=== PATIENT | female | born 1955 | race Hispanic/Latino ===

== ENCOUNTER 2017-04-21 05:35 | Observation (INO) | payer OTHER ==
[2017-04-21 05:35] VITALS: BMI 18.8
[2017-04-21 05:57] VITALS: RESP 18
--- NOTE | 2017-04-21 10:09 | C.PDOC ---
History Of Present Illness 62-year-old homeless female, PMHx includes schizophrenia (per prior records) presents to the emergency department [facility] with complaints of feeling tired. Patient begging for cigarettes. patient denies any physical complaints at this time. No HI or hallucinations. Chief Complaint (Nursing): Psychiatric Evaluation History Per: Patient, EMS History/Exam Limitations: no limitations Onset/Duration Of Symptoms: Days Current Symptoms Are (Timing): Still Present Past Medical History Reviewed: Historical Data, Nursing Documentation, Vital Signs Vital Signs: Last Vital Signs Temp 98 F 04/21/17 12:28 Pulse 92 H 04/21/17 12:28 Resp 18 04/21/17 12:28 BP 101/56 L 04/21/17 12:28 Pulse Ox 96 04/21/17 12:28 - Medical History PMH: Schizophrenia Denies: Depression, Diabetes, Hepatitis, HIV, HTN, Chronic Kidney Disease, Seizures, Sexually Transmitted Disease - [facility] Procedures GROUP PSYCHOTHERAPY (03/21/17) INDIVID PSYCHOTHERAP NEC (05/25/13) INDIVIDUAL PSYCHOTHERAPY, SUPPORTIVE (03/21/17) MEDICATION MANAGEMENT (03/21/17) OTHER GROUP THERAPY (05/25/13) PSYCHIAT DRUG THERAP NEC (01/21/03) Family History: States: No Known Family Hx - Social History Hx Alcohol Use: No Hx Substance Use: Yes - Immunization History Hx Tetanus Toxoid Vaccination: No Hx Influenza Vaccination: No Hx Pneumococcal Vaccination: No Review Of Systems Except As Marked, All Systems Reviewed And Found Negative. Constitutional: Negative for: Fever Gastrointestinal: Negative for: Nausea, Vomiting Neurological: Negative for: Weakness, Numbness Psych: Negative for: Suicidal ideation Physical Exam - Physical Exam Appears: Non-toxic, No Acute Distress, Unkempt Skin: Warm, Dry, No Rash Nose: Normal Neck: Normal ROM Respiratory: No Accessory Muscle Use Extremity: Normal ROM Neurological/Psych: Oriented x3 ED Course And Treatment O2 Sat by Pulse Oximetry: 97 Disposition - Disposition Disposition: HOME/ ROUTINE Disposition Time: 11:50 Condition: GOOD - Clinical Impression Clinical Impression: Schizophrenia - Scribe Statement The provider has reviewed the documentation as recorded by the Franciscoiblisbeth Ureña All medical record entries made by the Franciscoiblisbeth were at my direction and personally dictated by me. I have reviewed the chart and agree that the record accurately reflects my personal performance of the history, physical exam, medical decision making, and the department course for this patient. I have also personally directed, reviewed, and agree with the discharge instructions and disposition.
[2017-04-21 12:30] VITALS: BP 101/56; PULSE 92; TEMP 98
[2017-04-21 18:17] VITALS: O2SAT 97
== END 2017-04-21 12:01 | disposition home or self-care (01) ==
LOC: C.ER 05:35 → C.9OBSV 07:00
PROVIDERS: ADMIT Emergency Medicine; ATTEND Emergency Medicine
DX: F20.9 Schizophrenia, unspecified (principal); Z59.0 Homelessness

== ENCOUNTER 2017-05-10 13:49 | Observation (INO) | payer OTHER ==
[2017-05-10 13:49] VITALS: BMI 18.8
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
[2017-05-10 18:17] LABS: BASO % 0.3 % (0.0-2.0); EOS # 0.1 K/uL (0.0-0.7); EOS % 1.7 % (0.0-4.0); HEMATOCRIT 36.3 % (34.0-47.0); LYMPH # 2.2 K/uL (1.0-4.3); LYMPH % 32.3 % (20.0-40.0); MEAN CELL VOLUME 91.5 fL (81.0-99.0); MEAN CORPUSCULAR HEMOGLOBIN 30.2 pg (27.0-31.0); MEAN PLATELET VOLUME 9.7 fL (7.2-11.7); MONO # 0.6 K/uL (0.0-0.8); MONO % 9.1 % (0.0-10.0); RED CELL DISTRIBUTION WIDTH 14.2 % (11.5-14.5); WHITE BLOOD COUNT 6.7 K/uL (4.8-10.8)
[2017-05-10 18:25] LABS: CHLORIDE 104 mmol/L (98-107); POTASSIUM 3.3 mmol/L (3.6-5.2); SODIUM 138 mmol/L (132-148)
[2017-05-10 18:27] LABS: ALB/GLOB RATIO 1.4 (1.0-2.1); ALKALINE PHOSPHATASE 48 U/L (38-126); AST/SGOT 21 U/L (14-36); BILIRUBIN,TOTAL 0.9 mg/dL (0.2-1.3); BLOOD UREA NITROGEN 13 mg/dL (7-17); CARBON DIOXIDE 22 mmol/L (22-30); GFR AFRICAN-AMERICAN > 60
[2017-05-10 18:28] LABS: ALCOHOL SERUM < 10 mg/dl (0-10); ALT/SGPT 22 U/L (9-52); GLUCOSE,RANDOM 75 mg/dL (65-105)
[2017-05-10 19:23] LABS: RBC URINE 12 /hpf (0-3); TRANSITIONAL EPITHIAL 1 /hpf (0-3); URINE BACTERIA FEW (<OCC); URINE BILIRUBIN NEGATIVE (NEGATIVE); URINE COLOR Amber (YELLOW); URINE GLUCOSE (UA) NORMAL (Normal); URINE KETONE 2+ mg/dL (NEGATIVE); URINE LEUKOCYTE ESTERASE 3+ Leu/uL (Negative); URINE PROTEIN NEGATIVE (NEGATIVE); URINE UROBILINOGEN NORMAL mg/dL (0.2-1.0); WBC URINE 38 /hpf (0-5)
[2017-05-10 19:39] LABS: URINE BLOOD TRACE (NEGATIVE)
[2017-05-10 22:40] VITALS: RESP 20
[2017-05-10] MEDS ORDERED: Potassium Chloride 20 mEq ER Tab PO STA (23:17)
[2017-05-10] MEDS ORDERED: Potassium Chloride 20 mEq ER Tab PO ONE (23:21)
[2017-05-11 06:07] VITALS: BP 121/70; PULSE 89; TEMP 97.1; O2SAT 98
== END 2017-05-11 05:04 | disposition home or self-care (01) ==
LOC: C.ER 13:49 → C.9OBSV 14:36
PROVIDERS: ADMIT Student in an Organized Health Care Education/Training Program; ATTEND Student in an Organized Health Care Education/Training Program
DX: F20.9 Schizophrenia, unspecified (principal)
CPT/HCPCS: 80053; 81001; 85025; 99285; G0378; G0480

== ENCOUNTER 2017-05-17 04:47 | Emergency (ER) | payer MEDICAID, OTHER ==
[2017-05-17 04:47] VITALS: BMI 18.8
[2017-05-17 04:52] VITALS: TEMP 98.1
--- NOTE | 2017-05-17 06:16 | C.PDOC ---
History Of Present Illness A 62 y/o F with a Hx of schizophrenia, wants a place to stay. Denies any physical complaints at this time. Time Seen by Provider: 05/17/17 06:13 Chief Complaint (Nursing): Medical Clearance History Per: Patient History/Exam Limitations: no limitations Onset/Duration Of Symptoms: Hrs Current Symptoms Are (Timing): Gone Severity: None Recent travel outside of the [place]: No Additional History Per: Patient Past Medical History Reviewed: Historical Data, Nursing Documentation, Vital Signs Vital Signs: Last Vital Signs Temp 98.1 F 05/17/17 04:50 Pulse 80 05/17/17 06:35 Resp 16 05/17/17 06:35 BP 120/74 05/17/17 06:35 Pulse Ox 97 05/17/17 06:35 - Medical History PMH: Schizophrenia Denies: Depression, Diabetes, Hepatitis, HIV, HTN, Chronic Kidney Disease, Seizures, Sexually Transmitted Disease - [facility] Procedures GROUP PSYCHOTHERAPY (04/28/17) INDIVID PSYCHOTHERAP NEC (05/25/13) INDIVIDUAL PSYCHOTHERAPY, SUPPORTIVE (03/21/17) MEDICATION MANAGEMENT (03/21/17) OTHER GROUP THERAPY (05/25/13) PSYCHIAT DRUG THERAP NEC (01/21/03) Family History: States: Unknown Family Hx - Social History Hx Alcohol Use: No Hx Substance Use: Yes - Immunization History Hx Tetanus Toxoid Vaccination: No Hx Influenza Vaccination: No Hx Pneumococcal Vaccination: No Review Of Systems Except As Marked, All Systems Reviewed And Found Negative. Constitutional: Negative for: Fever, Chills, Sweats Cardiovascular: Negative for: Chest Pain Respiratory: Negative for: Shortness of Breath Gastrointestinal: Negative for: Nausea, Vomiting, Abdominal Pain, Diarrhea Psych: Negative for: Suicidal ideation, Other (Homicidal ideation) Physical Exam - Physical Exam Appears: Non-toxic, No Acute Distress, Unkempt, Other (Desheveled, foul smelling , bizzare) Skin: Warm, Dry Head: Atraumatic, Normacephalic Eye(s): bilateral: Normal Inspection Oral Mucosa: Moist Cardiovascular: Rhythm Regular Respiratory: Normal Breath Sounds, No Rales, No Rhonchi, No Wheezing Gastrointestinal/Abdominal: Soft, No Tenderness Neurological/Psych: Oriented x3, Normal Speech, Normal Cognition ED Course And Treatment O2 Sat by Pulse Oximetry: 96 (RA) Pulse Ox Interpretation: Normal Medical Decision Making Medical Decision Making: Impression: A 62 y/o F with a Hx of schizophrenia, wants a place to stay. schizophrenia, malingering. dirty feet, no infections, Disposition Doctor Will See Patient In The: Office Counseled Patient/Family Regarding: Studies Performed, Diagnosis - Disposition Referrals: Non [facility] Provider, [Primary Care Provider] - Disposition: HOME/ ROUTINE Disposition Time: 06:15 Condition: GOOD Additional Instructions: seek intermediate placement for nightly place to sleep Instructions: Schizophrenia (ED) - Clinical Impression Clinical Impression: Schizophrenia, Malingering - Scribe Statement The provider has reviewed the documentation as recorded by the Scribe Bladimir kothari All medical record entries made by the Scribe were at my direction and personally dictated by me. I have reviewed the chart and agree that the record accurately reflects my personal performance of the history, physical exam, medical decision making, and the department course for this patient. I have also personally directed, reviewed, and agree with the discharge instructions and disposition.
[2017-05-17 06:35] VITALS: BP 120/74; PULSE 80; RESP 16
[2017-05-18 23:51] VITALS: O2SAT 96
== END 2017-05-17 06:35 | disposition home or self-care (01) ==
LOC: SUPCPDRO 04:47 → C.ER 04:47
DX: F20.9 Schizophrenia, unspecified (principal); Z76.5 Malingerer [conscious simulation]

== ENCOUNTER 2017-06-06 18:39 | Observation (INO) | payer OTHER ==
[2017-06-06 18:50] VITALS: O2SAT 97
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
[2017-06-06 19:43] LABS: BASO # 0.1 K/uL (0.0-0.2); BASO % 1.4 % (0.0-2.0); EOS # 0.2 K/uL (0.0-0.7); EOS % 2.3 % (0.0-4.0); HEMATOCRIT 35.8 % (34.0-47.0); LYMPH # 1.9 K/uL (1.0-4.3); MEAN CELL VOLUME 90.1 fL (81.0-99.0); MEAN CORPUSCULAR HEMOGLOBIN 30.4 pg (27.0-31.0); MEAN CORPUSCULAR HGB CONC 33.8 g/dL (33.0-37.0); MEAN PLATELET VOLUME 10.4 fL (7.2-11.7); MONO # 0.9 K/uL (0.0-0.8); RED CELL DISTRIBUTION WIDTH 14.1 % (11.5-14.5); WHITE BLOOD COUNT 6.9 K/uL (4.8-10.8)
[2017-06-06 19:54] LABS: CHLORIDE 97 mmol/L (98-107)
[2017-06-06 19:55] LABS: POTASSIUM 3.1 mmol/L (3.6-5.2); SODIUM 137 mmol/L (132-148)
[2017-06-06 19:57] LABS: ALB/GLOB RATIO 1.4 (1.0-2.1); ALKALINE PHOSPHATASE 57 U/L (38-126); ALT/SGPT 22 U/L (9-52); AST/SGOT 18 U/L (14-36); BILIRUBIN,TOTAL 0.8 mg/dL (0.2-1.3); BLOOD UREA NITROGEN 21 mg/dL (7-17); CARBON DIOXIDE 24 mmol/L (22-30); GFR AFRICAN-AMERICAN > 60; GLUCOSE,RANDOM 89 mg/dL (65-105); TOTAL PROTEIN 6.4 g/dL (6.3-8.3)
[2017-06-06 19:58] LABS: ALCOHOL SERUM < 10 mg/dl (0-10); CALCIUM 8.5 mg/dl (8.6-10.4)
[2017-06-06] MEDS ORDERED: Potassium Chloride 20 mEq ER Tab PO STA (20:09)
[2017-06-06] MEDS ORDERED: Potassium Chloride 20 mEq ER Tab PO ONE ×2 (20:18→20:19)
[2017-06-06 21:16] LABS: RBC URINE 27 /hpf (0-3); RENAL EPITHELIAL 2 /hpf (0-3); URINE BACTERIA RARE (<OCC); URINE BILIRUBIN NEGATIVE (NEGATIVE); URINE BLOOD 1+ (NEGATIVE); URINE COLOR Yellow (YELLOW); URINE GLUCOSE (UA) NORMAL (Normal); URINE KETONE 1+ mg/dL (NEGATIVE); URINE LEUKOCYTE ESTERASE 3+ Leu/uL (Negative); URINE PROTEIN 1+ mg/dL (NEGATIVE); URINE UROBILINOGEN NORMAL mg/dL (0.2-1.0); WBC URINE 148 /hpf (0-5)
[2017-06-07 02:16] VITALS: BP 95/55; PULSE 62; RESP 16; TEMP 98
--- NOTE | 2017-06-07 08:43 | RAD ---
PROCEDURE: CHEST RADIOGRAPH, 1 VIEW HISTORY: Detox/Psy COMPARISON: None available. FINDINGS: LUNGS: The lungs are clear. PLEURA: No pneumothorax or pleural fluid seen. CARDIOVASCULAR: Normal. OSSEOUS STRUCTURES: No significant abnormalities. VISUALIZED UPPER ABDOMEN: Normal. OTHER FINDINGS: None. IMPRESSION: No active pulmonary disease.
--- NOTE | 2017-06-11 10:12 | CARD ---
APPROVED REPORT EKG Measurement Heart [id number] [place] [id number] <Conclusion> Undetermined rhythm Otherwise normal ECG
== END 2017-06-07 05:48 | disposition home or self-care (01) ==
LOC: C.ER 18:39 → EDBD 18:39 → MERGE 06-07 01:12 → C.9OBSV 06-07 01:12
PROVIDERS: ADMIT Student in an Organized Health Care Education/Training Program; ATTEND Student in an Organized Health Care Education/Training Program
DX: F20.9 Schizophrenia, unspecified (principal)
CPT/HCPCS: 71010; 80053; 80320; 80324; 80329; 80345; 80346; 80349; 80353; 80358; 80361; 81001; 83992; 84703; 85025; 93005; 99285; G0378

== ENCOUNTER 2017-06-10 23:49 | Emergency (ER) | payer OTHER ==
[2017-06-10 23:50] VITALS: BMI 18.8
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
[2017-06-11 01:40] LABS: BASO % 0.2 % (0.0-2.0); EOS # 0.2 K/uL (0.0-0.7); EOS % 3.9 % (0.0-4.0); HEMATOCRIT 33.4 % (34.0-47.0); LYMPH % 36.2 % (20.0-40.0); MEAN CELL VOLUME 90.6 fL (81.0-99.0); MEAN CORPUSCULAR HEMOGLOBIN 30.3 pg (27.0-31.0); MEAN CORPUSCULAR HGB CONC 33.4 g/dL (33.0-37.0); MEAN PLATELET VOLUME 10.4 fL (7.2-11.7); MONO # 0.7 K/uL (0.0-0.8); MONO % 12.5 % (0.0-10.0); NRBC % 0.1 % (0.0-2.0); RED CELL DISTRIBUTION WIDTH 14.7 % (11.5-14.5); WHITE BLOOD COUNT 5.7 K/uL (4.8-10.8)
[2017-06-11 01:45] LABS: CHLORIDE 100 mmol/L (98-107); SODIUM 137 mmol/L (132-148)
[2017-06-11 01:47] LABS: AST/SGOT 14 U/L (14-36); BILIRUBIN,TOTAL 0.7 mg/dL (0.2-1.3); CARBON DIOXIDE 22 mmol/L (22-30); GFR AFRICAN-AMERICAN > 60
[2017-06-11 01:48] LABS: ALB/GLOB RATIO 1.4 (1.0-2.1); ALCOHOL SERUM < 10 mg/dl (0-10); ALKALINE PHOSPHATASE 54 U/L (38-126); ALT/SGPT 25 U/L (9-52); BLOOD UREA NITROGEN 12 mg/dL (7-17); CALCIUM 8.3 mg/dl (8.6-10.4); GLUCOSE,RANDOM 79 mg/dL (65-105); TOTAL PROTEIN 5.8 g/dL (6.3-8.3)
[2017-06-11 01:50] LABS: RBC URINE 63 /hpf (0-3); URINE BACTERIA RARE (<OCC); URINE BILIRUBIN NEGATIVE (NEGATIVE); URINE BLOOD 2+ (NEGATIVE); URINE CALCIUM OXALATE CRYSTALS RARE /hpf (<OCC); URINE COLOR Yellow (YELLOW); URINE GLUCOSE (UA) NORMAL (Normal); URINE KETONE TRACE mg/dL (NEGATIVE); URINE LEUKOCYTE ESTERASE 3+ Leu/uL (Negative); URINE PROTEIN 1+ mg/dL (NEGATIVE); URINE UROBILINOGEN NORMAL mg/dL (0.2-1.0); WBC URINE 42 /hpf (0-5)
[2017-06-11 01:54] LABS: POTASSIUM 2.5 mmol/L (3.6-5.2)
[2017-06-11] MEDS ORDERED: Potassium Chloride 20 mEq ER Tab PO ONE (01:57)
[2017-06-11] MEDS ORDERED: Potassium Chloride 10 mEq ER Tab PO STA (01:58)
[2017-06-11 04:12] VITALS: PULSE 61; RESP 16
[2017-06-11 05:59] VITALS: BP 99/65; TEMP 97.7; O2SAT 99
--- NOTE | 2017-06-11 08:02 | RAD ---
PROCEDURE: CHEST RADIOGRAPH, 1 VIEW HISTORY: Detox/Psy COMPARISON: None available. FINDINGS: LUNGS: Mild venous congestion. Right hilar prominence. PLEURA: No pneumothorax or pleural fluid seen. CARDIOVASCULAR: Calcification at the aortic knob. OSSEOUS STRUCTURES: Calcific tendinopathy of the right proximal humerus. VISUALIZED UPPER ABDOMEN: Normal. OTHER FINDINGS: None. IMPRESSION: Mild venous congestion.
--- NOTE | 2017-06-14 06:53 | CARD ---
APPROVED REPORT EKG Measurement Heart [id number] <Conclusion> Normal sinus rhythm, 1st degree AV block with prolonged QTc interval. Borderline ECG
== END 2017-06-11 06:16 | disposition home or self-care (01) ==
LOC: C.ER 23:49
DX: F20.9 Schizophrenia, unspecified (principal); E87.6 Hypokalemia

== ENCOUNTER 2017-06-26 23:13 | Observation (INO) | payer OTHER ==
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
[2017-06-26 23:27] VITALS: BMI 18.6
[2017-06-27 00:33] LABS: EOS # 0.3 K/uL (0.0-0.7); EOS % 5.6 % (0.0-4.0); HEMATOCRIT 34.1 % (34.0-47.0); LYMPH # 1.9 K/uL (1.0-4.3); LYMPH % 33.2 % (20.0-40.0); MONO # 0.4 K/uL (0.0-0.8); WHITE BLOOD COUNT 5.7 K/uL (4.8-10.8)
[2017-06-27 00:38] LABS: BASO % 0.3 % (0.0-2.0); MEAN CORPUSCULAR HEMOGLOBIN 30.1 pg (27.0-31.0); MEAN PLATELET VOLUME 9.9 fL (7.2-11.7); MONO % 7.3 % (0.0-10.0); NRBC % 0.1 % (0.0-2.0); RED CELL DISTRIBUTION WIDTH 14.5 % (11.5-14.5)
[2017-06-27 00:47] LABS: CHLORIDE 103 mmol/L (98-107); SODIUM 138 mmol/L (132-148)
[2017-06-27 00:48] LABS: POTASSIUM 2.9 mmol/L (3.6-5.2)
[2017-06-27 00:50] LABS: ALB/GLOB RATIO 1.3 (1.0-2.1); ALKALINE PHOSPHATASE 48 U/L (38-126); AST/SGOT 26 U/L (14-36); BILIRUBIN,TOTAL 0.6 mg/dL (0.2-1.3); BLOOD UREA NITROGEN 9 mg/dL (7-17); CARBON DIOXIDE 26 mmol/L (22-30); GFR AFRICAN-AMERICAN > 60; GLUCOSE,RANDOM 94 mg/dL (65-105); TOTAL PROTEIN 5.1 g/dL (6.3-8.3)
[2017-06-27 00:51] LABS: ALCOHOL SERUM < 10 mg/dl (0-10); ALT/SGPT 35 U/L (9-52)
[2017-06-27 02:01] VITALS: RESP 16
[2017-06-27 05:54] VITALS: O2SAT 98
[2017-06-27 06:48] LABS: RBC URINE 2 /hpf (0-3); URINE BILIRUBIN NEGATIVE (NEGATIVE); URINE BLOOD NEGATIVE (NEGATIVE); URINE COLOR Yellow (YELLOW); URINE GLUCOSE (UA) NORMAL (Normal); URINE KETONE 1+ mg/dL (NEGATIVE); URINE LEUKOCYTE ESTERASE TRACE Leu/uL (Negative); URINE PROTEIN NEGATIVE (NEGATIVE); WBC URINE 14 /hpf (0-5)
--- NOTE | 2017-06-27 12:46 | RAD ---
PROCEDURE: CHEST RADIOGRAPH, 1 VIEW HISTORY: SOB COMPARISON: 06/11/2017. FINDINGS: LUNGS: Clear. PLEURA: No pneumothorax or pleural fluid seen. CARDIOVASCULAR: Normal. OSSEOUS STRUCTURES: No significant abnormalities. VISUALIZED UPPER ABDOMEN: Normal. OTHER FINDINGS: None. IMPRESSION: No active disease. No acute/significant interval changes.
[2017-06-27] MEDS ORDERED: Divalproex 250 mg DR Tab PO ONE (13:03)
[2017-06-27 14:07] VITALS: BP 106/65; PULSE 82; TEMP 97.7
--- NOTE | 2017-06-28 20:52 | CARD ---
APPROVED REPORT EKG Measurement Heart [id number] [place] 182P64 [id number] <Conclusion> Normal sinus rhythm Normal ECG
== END 2017-06-27 14:54 | disposition home or self-care (01) ==
LOC: C.ER 23:13 → C.9OBSV 06-27 00:10
PROVIDERS: ADMIT Emergency Medicine; ATTEND Emergency Medicine
DX: F20.9 Schizophrenia, unspecified (principal); I10 Essential (primary) hypertension
CPT/HCPCS: 36415; 71010; 80053; 80164; 80320; 80324; 80345; 80346; 80349; 80353; 80358; 80361; 81001; 83992; 85025; 93005; 96372; 99285; G0378; J1630; J2060

== ENCOUNTER 2017-07-13 14:55 | Emergency (ER) | payer OTHER ==
[2017-07-13 14:56] VITALS: BMI 18.6
[2017-07-13 15:21] VITALS: TEMP 98.1
[2017-07-13 16:03] LABS: BASO # 0.2 K/uL (0.0-0.2); EOS # 0.2 K/uL (0.0-0.7); EOS % 3.2 % (0.0-4.0); HEMATOCRIT 37.1 % (34.0-47.0); LYMPH # 1.7 K/uL (1.0-4.3); LYMPH % 30.1 % (20.0-40.0); MEAN CELL VOLUME 91.7 fL (81.0-99.0); MEAN CORPUSCULAR HEMOGLOBIN 29.9 pg (27.0-31.0); MEAN CORPUSCULAR HGB CONC 32.6 g/dL (33.0-37.0); MEAN PLATELET VOLUME 9.4 fL (7.2-11.7); MONO # 0.4 K/uL (0.0-0.8); MONO % 7.9 % (0.0-10.0); NRBC % 0.1 % (0.0-2.0); RED CELL DISTRIBUTION WIDTH 15.1 % (11.5-14.5); WHITE BLOOD COUNT 5.6 K/uL (4.8-10.8)
[2017-07-13 16:15] LABS: RBC URINE 13 /hpf (0-3); TRANSITIONAL EPITHIAL < 1 /hpf (0-3); URINE BACTERIA RARE (<OCC); URINE BILIRUBIN NEGATIVE (NEGATIVE); URINE BLOOD 1+ (NEGATIVE); URINE COLOR Yellow (YELLOW); URINE GLUCOSE (UA) NORMAL (Normal); URINE KETONE TRACE mg/dL (NEGATIVE); URINE PROTEIN NEGATIVE (NEGATIVE); WBC URINE 3 /hpf (0-5)
[2017-07-13 16:15] LABS: CHLORIDE 106 mmol/L (98-107); POTASSIUM 3.2 mmol/L (3.6-5.2); SODIUM 142 mmol/L (132-148)
[2017-07-13 16:17] LABS: ALB/GLOB RATIO 1.2 (1.0-2.1); ALKALINE PHOSPHATASE 59 U/L (38-126); AST/SGOT 22 U/L (14-36); BILIRUBIN,TOTAL 0.6 mg/dL (0.2-1.3); BLOOD UREA NITROGEN 10 mg/dL (7-17); CARBON DIOXIDE 25 mmol/L (22-30); GFR AFRICAN-AMERICAN > 60; TOTAL PROTEIN 5.8 g/dL (6.3-8.3)
[2017-07-13 16:17] LABS: URINE LEUKOCYTE ESTERASE NEGATIVE Leu/uL (Negative)
[2017-07-13 16:18] LABS: ALCOHOL SERUM < 10 mg/dl (0-10); ALT/SGPT 28 U/L (9-52); CALCIUM 9.3 mg/dl (8.6-10.4); GLUCOSE,RANDOM 98 mg/dL (65-105)
[2017-07-13 17:38] LABS: VALPROIC ACID < 10.0 ug/mL (50.0-100.0)
--- NOTE | 2017-07-13 17:55 | C.PDOC ---
Time Seen by Provider: 07/13/17 15:33 Chief Complaint (Nursing): Psychiatric Evaluation History Per: Patient, EMS History/Exam Limitations: other (uncooperative) Onset/Duration Of Symptoms: Days (chronic) Current Symptoms Are (Timing): Still Present Suicide/Self Injury Attempted (Context): None Modifying Factor(s): None Severity: Moderate Associated Symptoms: Agitation Additional History Per: Prior Records Past Medical History Reviewed: Historical Data, Nursing Documentation, Vital Signs Vital Signs: Last Vital Signs Temp 98.1 F 07/13/17 15:21 Pulse 77 07/13/17 15:21 Resp 18 07/13/17 15:21 BP 130/68 07/13/17 15:21 Pulse Ox 99 07/13/17 15:21 - Medical History PMH: HTN, Schizophrenia - [facility] Procedures GROUP PSYCHOTHERAPY (04/28/17) INDIVID PSYCHOTHERAP NEC (05/25/13) INDIVIDUAL PSYCHOTHERAPY, SUPPORTIVE (03/21/17) MEDICATION MANAGEMENT (03/21/17) OTHER GROUP THERAPY (05/25/13) PSYCHIAT DRUG THERAP NEC (01/21/03) Family History: States: Unknown Family Hx - Social History Hx Alcohol Use: No Hx Substance Use: Yes - Immunization History Hx Tetanus Toxoid Vaccination: No Hx Influenza Vaccination: No Hx Pneumococcal Vaccination: No Review Of Systems Review Of Systems: ROS cannot be obtained secondary to pt's inabilty to answer questions. (refusing to answer) Physical Exam - Physical Exam Appears: Non-toxic, No Acute Distress, Agitated, Other (Uncooperative) Skin: Normal Color, Warm, Dry Head: Atraumatic Eye(s): bilateral: PERRL, EOMI Neck: Normal ROM, No Midline Cervical Tenderness, No Step Off Deformity, Supple Chest: Symmetrical, No Deformity Cardiovascular: Rhythm Regular Respiratory: Normal Breath Sounds, No Accessory Muscle Use Gastrointestinal/Abdominal: Soft, No Tenderness Extremity: Normal ROM, No Deformity Neurological/Psych: Inappropriate Response To Command (Uncooperative. Refusing to answer questions), Other (Moving all extremities) ED Course And Treatment - Laboratory Results Result Diagrams: 07/13/17 15:58 07/13/17 15:58 Lab Interpretation: No Acute Changes O2 Sat by Pulse Oximetry: 99 Pulse Ox Interpretation: Normal Progress Note: Pt was evaluated by the mechanical maintenance worker who d/w the psychiatrist Dr. Snow. They psychiatrically cleared pt for discharge and arranged for outpt f/up. Reassessment Condition: Improved Disposition Counseled Patient/Family Regarding: Studies Performed, Diagnosis, Need For Followup - Disposition Referrals: [facility] at [facility] [Outside] Disposition: HOME/ ROUTINE Disposition Time: 17:57 Condition: STABLE Additional Instructions: Follow up in the clinic and with outpatient mental health as instructed. Return to the ER if you develop suicidal or homicidal thoughts, worsening of symptoms or if you have any other concerns. Instructions: Schizophrenia (ED) Forms: [email or web address] (Upper Sorbian) - Clinical Impression Clinical Impression: Chronic schizophrenic
[2017-07-13 17:57] VITALS: BP 114/70; PULSE 78; RESP 20
[2017-07-13 17:59] VITALS: O2SAT 99
== END 2017-07-13 19:12 | disposition home or self-care (01) ==
LOC: C.ER 14:55
DX: F20.5 Residual schizophrenia (principal)

== ENCOUNTER 2017-07-19 14:47 | Emergency (ER) | payer OTHER ==
[2017-07-19 14:48] VITALS: BMI 18.6
[2017-07-19 14:59] VITALS: TEMP 98.7
--- NOTE | 2017-07-19 15:39 | C.PDOC ---
History Of Present Illness A 62 year old female, whose past medical history includes schizophrenia and hypertension, presents to the emergency department brought in by EMS for abnormal public behavior in the park. The patient has many prior visits for the the same complaints. The patient is brought in for psychiatric evaluation and is given similar lab work up for no emergent psychiatric issues. The patient is completely asymptomatic at this time. Time Seen by Provider: 07/19/17 14:54 Chief Complaint (Nursing): Psychiatric Evaluation History Per: Patient History/Exam Limitations: no limitations Onset/Duration Of Symptoms: Mins (x prior to arrival ) Past Medical History Vital Signs: Last Vital Signs Temp 98.7 F 07/19/17 14:54 Pulse 74 07/19/17 16:05 Resp 16 07/19/17 16:05 BP 95/43 L 07/19/17 16:05 Pulse Ox 100 07/19/17 16:05 - Medical History PMH: HTN, Schizophrenia Denies: Diabetes, Hepatitis, HIV, Chronic Kidney Disease, Seizures, Sexually Transmitted Disease - [facility] Procedures GROUP PSYCHOTHERAPY (04/28/17) INDIVID PSYCHOTHERAP NEC (05/25/13) INDIVIDUAL PSYCHOTHERAPY, SUPPORTIVE (03/21/17) MEDICATION MANAGEMENT (03/21/17) OTHER GROUP THERAPY (05/25/13) PSYCHIAT DRUG THERAP NEC (01/21/03) Family History: States: Unknown Family Hx - Social History Hx Alcohol Use: No (unknown) Hx Substance Use: No (uknown) - Immunization History Hx Tetanus Toxoid Vaccination: No Hx Influenza Vaccination: No Hx Pneumococcal Vaccination: No Review Of Systems Except As Marked, All Systems Reviewed And Found Negative. Constitutional: Negative for: Fever Cardiovascular: Negative for: Chest Pain Respiratory: Negative for: Cough, Shortness of Breath Gastrointestinal: Negative for: Nausea, Vomiting, Abdominal Pain, Diarrhea Psych: Negative for: Suicidal ideation Physical Exam - Physical Exam Appears: Non-toxic, No Acute Distress, Other (bizarre behavior; disheveled; foul smelling, covered in stool; argumentative ) Skin: Normal Color, Warm, Dry Eye(s): bilateral: Normal Inspection, PERRL, EOMI Nose: Normal Throat: Normal Neck: Normal Cardiovascular: Rhythm Regular Respiratory: Normal Breath Sounds Gastrointestinal/Abdominal: Normal Exam Back: Normal Inspection Extremity: Normal ROM Neurological/Psych: Other (A&O) ED Course And Treatment O2 Sat by Pulse Oximetry: 99 Medical Decision Making Medical Decision Making: baseline schizophrenia, malingering no acute issues many prior evals w Crisis, uncooperative, ok for opt f/u no SI/HI Treatment Plan: -- Ativan Progress Notes: Disposition Doctor Will See Patient In The: Office Counseled Patient/Family Regarding: Studies Performed, Diagnosis - Disposition Referrals: [facility] [Outside] [facility] [place] [Outside] [facility] [Outside] [facility] [Outside] Disposition: HOME/ ROUTINE Disposition Time: 15:39 Condition: GOOD Additional Instructions: follow-up with our outpatient psych services Seek nightly Nursing Home placement as directed. Instructions: Schizophrenia (ED) Forms: [employer] (Serbian) - Clinical Impression Clinical Impression: Schizophrenia - Scribe Statement The provider has reviewed the documentation as recorded by the Scribe Roz Solorzano All medical record entries made by the Scribe were at my direction and personally dictated by me. I have reviewed the chart and agree that the record accurately reflects my personal performance of the history, physical exam, medical decision making, and the department course for this patient. I have also personally directed, reviewed, and agree with the discharge instructions and disposition.
[2017-07-19 16:06] VITALS: BP 95/43; PULSE 74; RESP 16
[2017-07-19 17:20] VITALS: O2SAT 99
== END 2017-07-19 16:07 | disposition home or self-care (01) ==
LOC: C.ER 14:47
DX: F20.9 Schizophrenia, unspecified (principal)
CPT/HCPCS: 96372; 99283; J2060

== ENCOUNTER 2017-07-23 23:02 | Emergency (ER) | payer OTHER ==
[2017-07-23 23:02] VITALS: BMI 18.6
--- NOTE | 2017-07-23 23:22 | C.PDOC ---
History Of Present Illness 62 year old female who is a well known homeless schizophrenic presents to the ER no new complaints. Patient has had many prior evaluations, usually for malingering and looking for a place to stay. When asked why she is here she responded, "leave me alone, I'm watching TV. No, I don't want anything, no I don 't have any complaints" Time Seen by Provider: 07/23/17 23:20 History Per: Patient History/Exam Limitations: no limitations Onset/Duration Of Symptoms: Hrs Current Symptoms Are (Timing): Still Present Suicide/Self Injury Attempted (Context): None Associated Symptoms: denies: Depression, Suicidal Thoughts, Suicidal Plan Recent travel outside of the [place]: No Past Medical History Reviewed: Historical Data, Nursing Documentation, Vital Signs Vital Signs: Last Vital Signs Temp 98.0 F 07/23/17 23:38 Pulse 88 07/23/17 23:38 Resp 20 07/23/17 23:38 BP 110/72 07/23/17 23:38 Pulse Ox 95 07/23/17 23:38 - Medical History PMH: HTN, Schizophrenia Surgical History: No Surg Hx - [facility] Procedures GROUP PSYCHOTHERAPY (04/28/17) INDIVID PSYCHOTHERAP NEC (05/25/13) INDIVIDUAL PSYCHOTHERAPY, SUPPORTIVE (03/21/17) MEDICATION MANAGEMENT (03/21/17) OTHER GROUP THERAPY (05/25/13) PSYCHIAT DRUG THERAP NEC (01/21/03) Family History: States: Unknown Family Hx - Social History Hx Alcohol Use: No (unknown) Hx Substance Use: No (uknown) - Immunization History Hx Tetanus Toxoid Vaccination: No Hx Influenza Vaccination: No Hx Pneumococcal Vaccination: No Review Of Systems Constitutional: Negative for: Fever, Chills Cardiovascular: Negative for: Chest Pain, Palpitations Gastrointestinal: Negative for: Nausea, Vomiting Neurological: Negative for: Weakness, Numbness Physical Exam - Physical Exam Appears: Non-toxic, No Acute Distress, Other (Disheveled, foul smelling, argumentative, no acute injuries) Skin: Normal Color, Warm, Dry Head: Atraumatic, Normacephalic Respiratory: No Accessory Muscle Use Extremity: Normal ROM (x4) Neurological/Psych: Oriented x3, Normal Speech, Normal Cognition Gait: Steady Medical Decision Making Medical Decision Making: chronic schizophrenia, malingering, no SI/HI/plan Multiple ED and psych evals and unable to tolerate inpt psych eval Disposition Doctor Will See Patient In The: Office Counseled Patient/Family Regarding: Studies Performed, Diagnosis - Disposition Referrals: [facility] [Outside] [facility] [Outside] [facility] [Outside] [facility] [Outside] [facility] [Outside] Disposition: HOME/ ROUTINE Disposition Time: 23:21 Condition: GOOD Additional Instructions: please seek nightly Homeless Detention placement. Seek evaluation at our outpatient psych services Instructions: Schizophrenia (ED) - Clinical Impression Clinical Impression: Schizophrenia, Malingering - Scribe Statement The provider has reviewed the documentation as recorded by the Scribe Jamison Arizmendi All medical record entries made by the Scribe were at my direction and personally dictated by me. I have reviewed the chart and agree that the record accurately reflects my personal performance of the history, physical exam, medical decision making, and the department course for this patient. I have also personally directed, reviewed, and agree with the discharge instructions and disposition.
[2017-07-23 23:44] VITALS: TEMP 98
[2017-07-24 00:54] VITALS: BP 118/72; PULSE 82; RESP 16; O2SAT 97
== END 2017-07-24 00:15 | disposition home or self-care (01) ==
LOC: C.ER 23:02
DX: F20.9 Schizophrenia, unspecified (principal); Z76.5 Malingerer [conscious simulation]; Z59.0 Homelessness

== ENCOUNTER 2018-10-25 03:07 | Emergency (ER) | payer MEDICAID, OTHER ==
[2018-10-25 03:07] VITALS: BMI 26.6
[2018-10-25 03:20] VITALS: RESP 20
--- NOTE | 2018-10-25 03:44 | C.PDOC ---
History Of Present Illness 63 year old female presents to the ER with a complaint of not feeling well, no specific complaint. Patient has had previous medical admissions for substance abuse and psych evaluation. Denies fever, chills, chest pain, or SOB. Chief Complaint (Nursing): Medical Clearance History Per: Patient History/Exam Limitations: no limitations Onset/Duration Of Symptoms: Hrs Current Symptoms Are (Timing): Still Present Recent travel outside of the [place]: No Past Medical History Reviewed: Historical Data, Nursing Documentation, Vital Signs Vital Signs: Last Vital Signs Temp 98.1 F 10/25/18 03:16 Pulse 79 10/25/18 03:16 Resp 20 10/25/18 03:16 BP 139/70 10/25/18 03:16 Pulse Ox 99 10/25/18 03:16 - Medical History PMH: Anxiety, Back Problems, HTN, Schizophrenia Denies: Diabetes, Hepatitis, HIV, Chronic Kidney Disease, Seizures, Sexually Transmitted Disease - [facility] Procedures GROUP PSYCHOTHERAPY (04/28/17) INDIVID PSYCHOTHERAP NEC (05/25/13) INDIVIDUAL PSYCHOTHERAPY, SUPPORTIVE (03/21/17) MEDICATION MANAGEMENT (03/21/17) OTHER GROUP THERAPY (05/25/13) PSYCHIAT DRUG THERAP NEC (01/21/03) Family History: States: Unknown Family Hx - Social History Hx Alcohol Use: No Hx Substance Use: No - Immunization History Hx Tetanus Toxoid Vaccination: No Hx Influenza Vaccination: No Hx Pneumococcal Vaccination: No Review Of Systems Constitutional: Positive for: Other (Not feeling well). Negative for: Fever, Chills Cardiovascular: Negative for: Chest Pain, Palpitations Respiratory: Negative for: Cough, Shortness of Breath Gastrointestinal: Negative for: Nausea, Vomiting Neurological: Negative for: Weakness, Numbness Physical Exam - Physical Exam Appears: Non-toxic Skin: Normal Color, Warm, Dry Head: Atraumatic, Normacephalic Eye(s): bilateral: Normal Inspection Oral Mucosa: Moist Neck: Normal, Supple Chest: Symmetrical, No Tenderness Cardiovascular: Rhythm Regular Respiratory: Normal Breath Sounds, No Rales, No Rhonchi, No Wheezing Gastrointestinal/Abdominal: Soft, No Tenderness Back: No CVA Tenderness Extremity: Normal ROM (x4) Neurological/Psych: Oriented x3, Normal Speech ED Course And Treatment - Laboratory Results Result Diagrams: 10/25/18 03:52 10/25/18 03:52 O2 Sat by Pulse Oximetry: 99 (Room air) Pulse Ox Interpretation: Normal Progress Note: Blood work and urinalysis ordered. Disposition Counseled Patient/Family Regarding: Diagnosis - Disposition Referrals: [facility] at [facility] [Outside] Disposition: HOME/ ROUTINE Disposition Time: 06:47 Condition: STABLE Forms: [facility] (Malaysian) - POA Present On Arrival: None - Clinical Impression Clinical Impression: Homelessness, Normal physical examination - Scribe Statement The provider has reviewed the documentation as recorded by the Scriblisbeth Arizmendi All medical record entries made by the Scribe were at my direction and personally dictated by me. I have reviewed the chart and agree that the record accurately reflects my personal performance of the history, physical exam, medical decision making, and the department course for this patient. I have also personally directed, reviewed, and agree with the discharge instructions and disposition.
[2018-10-25 04:03] LABS: BASO # 0.1 K/uL (0.0-0.2); BASO % 1.4 % (0.0-2.0); EOS # 0.1 K/uL (0.0-0.7); HEMOGLOBIN 13.1 g/dL (11.0-16.0); LYMPH # 1.4 K/uL (1.0-4.3); LYMPH % 18.7 % (20.0-40.0); MEAN CELL VOLUME 92.7 fL (81.0-99.0); MEAN CORPUSCULAR HGB CONC 33.4 g/dL (33.0-37.0); MEAN PLATELET VOLUME 10.3 fL (7.2-11.7); MONO # 0.6 K/uL (0.0-0.8); MONO % 8.4 % (0.0-10.0); NEUT # 5.4 K/uL (1.8-7.0); NEUT % 70.5 % (50.0-75.0); RBC 4.23 Mil/uL (3.80-5.20); RED CELL DISTRIBUTION WIDTH 12.8 % (11.5-14.5); WHITE BLOOD COUNT 7.7 K/uL (4.8-10.8)
[2018-10-25 04:30] LABS: ALB/GLOB RATIO 1.7 (1.0-2.1); ALBUMIN 4.3 g/dL (3.5-5.0); ALT/SGPT 44 U/L (9-52); AST/SGOT 59 U/L (14-36); BLOOD UREA NITROGEN 19 mg/dL (7-17); CALCIUM 9.3 mg/dl (8.6-10.4); GFR NON-AFRICAN AMERICAN > 60
[2018-10-25 06:26] LABS: BARBITURATES, UR NEGATIVE (NEGATIVE); BENZODIAZEPINES, UR NEGATIVE (NEGATIVE); OPIATES, UR NEGATIVE (NEGATIVE); PHENCYCLIDINE, UR NEGATIVE (NEGATIVE)
[2018-10-25 06:29] LABS: SQUAMOUS EPITHIAL 1 /hpf (0-5); URINE BACTERIA RARE (<OCC); URINE BILIRUBIN NEGATIVE (NEGATIVE); URINE BLOOD 1+ (NEGATIVE); URINE CLARITY Clear (Clear); URINE COLOR Yellow (YELLOW); URINE GLUCOSE (UA) NORMAL (Normal); URINE LEUKOCYTE ESTERASE 3+ Leu/uL (Negative); URINE PROTEIN NEGATIVE (NEGATIVE); URINE UROBILINOGEN NORMAL mg/dL (0.2-1.0)
[2018-10-25 06:32] VITALS: BP 106/45; PULSE 85; TEMP 98.9
[2018-10-25 06:49] VITALS: O2SAT 99
== END 2018-10-25 07:03 | disposition home or self-care (01) ==
LOC: C.ER 03:07
DX: Z00.00 Encounter for general adult medical examination without abnormal findings (principal); Z59.0 Homelessness

== ENCOUNTER 2018-11-01 04:30 | Emergency (ER) | payer OTHER ==
[2018-11-01 04:30] VITALS: BMI 26.6
--- NOTE | 2018-11-01 05:01 | C.PDOC ---
History Of Present Illness 63 year old female is brought to the ED by EMS for evaluation of back pain. Patient was found in the street c/o back pain. Upon arrival patient was covered in urine and feces and showered. Patient ambulating without difficulty, yelling and screaming. Patient denies SI/HI, hallucinations, CP, SOB, injury, fall, trauma, weakness, numbness. Time Seen by Provider: 11/01/18 04:57 History Per: Patient, EMS History/Exam Limitations: no limitations Onset/Duration Of Symptoms: Hrs Current Symptoms Are (Timing): Still Present Suicide/Self Injury Attempted (Context): None Associated Symptoms: Agitation. denies: Depression, Suicidal Thoughts, Suicidal Plan Recent travel outside of the [place]: No Additional History Per: Patient Past Medical History Reviewed: Historical Data, Nursing Documentation, Vital Signs - Medical History PMH: Anxiety, Back Problems, HTN, Schizophrenia Denies: Diabetes, Hepatitis, HIV, Chronic Kidney Disease, Seizures, Sexually Transmitted Disease Surgical History: No Surg Hx - [facility] Procedures GROUP PSYCHOTHERAPY (04/28/17) INDIVID PSYCHOTHERAP NEC (05/25/13) INDIVIDUAL PSYCHOTHERAPY, SUPPORTIVE (03/21/17) MEDICATION MANAGEMENT (03/21/17) OTHER GROUP THERAPY (05/25/13) PSYCHIAT DRUG THERAP NEC (01/21/03) Family History: States: Unknown Family Hx - Social History Hx Alcohol Use: No Hx Substance Use: No - Immunization History Hx Tetanus Toxoid Vaccination: No Hx Influenza Vaccination: No Hx Pneumococcal Vaccination: No Review Of Systems Constitutional: Negative for: Fever, Chills Cardiovascular: Negative for: Chest Pain Respiratory: Negative for: Shortness of Breath Gastrointestinal: Negative for: Nausea, Vomiting, Abdominal Pain Genitourinary: Negative for: Incontinence Musculoskeletal: Positive for: Back Pain Skin: Negative for: Rash Neurological: Negative for: Weakness, Numbness, Headache Physical Exam - Physical Exam Appears: Non-toxic, No Acute Distress Skin: Warm, Dry Head: Normacephalic Eye(s): bilateral: Normal Inspection Neck: Supple Chest: Symmetrical Cardiovascular: Rhythm Regular Respiratory: No Rales, No Rhonchi, Wheezing Extremity: Bilateral: Atraumatic, Normal Color And Temperature, Normal ROM Neurological/Psych: Oriented x3, Normal Speech, Normal Cognition Gait: Steady ED Course And Treatment Pulse Ox Interpretation: Normal Disposition Counseled Patient/Family Regarding: Studies Performed, Diagnosis - Disposition Disposition Time: :01 Condition: FAIR - Clinical Impression Clinical Impression: Encounter for medical assessment, Chronic schizophrenic, Homelessness - Scribe Statement The provider has reviewed the documentation as recorded by the Scribe Mayito Posada All medical record entries made by the Scribe were at my direction and personally dictated by me. I have reviewed the chart and agree that the record accurately reflects my personal performance of the history, physical exam, medical decision making, and the department course for this patient. I have also personally directed, reviewed, and agree with the discharge instructions and disposition. Physician Patient Turnover Patient Signed Over To: Shu Jordan Handoff Comments: pending social service and dispo
[2018-11-01 07:32] VITALS: BP 105/70; PULSE 75; RESP 20; TEMP 98; O2SAT 98
== END 2018-11-01 08:21 | disposition home or self-care (01) ==
LOC: C.ER 04:30
DX: Z04.89 Encounter for examination and observation for other specified reasons (principal); F20.9 Schizophrenia, unspecified; Z59.0 Homelessness

== ENCOUNTER 2018-11-02 05:59 | Emergency (ER) | payer OTHER ==
[2018-11-02 05:59] VITALS: BMI 26.6
--- NOTE | 2018-11-02 06:05 | C.PDOC ---
History Of Present Illness Patient presents to the ER requesting a place to spend the night. Patient was seen yesterday for similar, refuses vitals or to be examined at this time. Denies suicidal ideation or homicidal ideation. Time Seen by Provider: 11/02/18 06:02 History Per: Patient History/Exam Limitations: no limitations Suicide/Self Injury Attempted (Context): None Modifying Factor(s): None Severity: None Pain Scale Rating Of: 0 Associated Symptoms: denies: Suicidal Thoughts, Other (Homicidal ideation) Involuntary Hold By: None Recent travel outside of the [place]: No Past Medical History - Medical History PMH: Anxiety, Back Problems, HTN, Schizophrenia Denies: Diabetes, Hepatitis, HIV, Chronic Kidney Disease, Seizures, Sexually Transmitted Disease - [facility] Procedures GROUP PSYCHOTHERAPY (04/28/17) INDIVID PSYCHOTHERAP NEC (05/25/13) INDIVIDUAL PSYCHOTHERAPY, SUPPORTIVE (03/21/17) MEDICATION MANAGEMENT (03/21/17) OTHER GROUP THERAPY (05/25/13) PSYCHIAT DRUG THERAP NEC (01/21/03) Family History: States: Unknown Family Hx - Social History Hx Alcohol Use: No Hx Substance Use: No - Immunization History Hx Tetanus Toxoid Vaccination: No Hx Influenza Vaccination: No Hx Pneumococcal Vaccination: No Disposition Counseled Patient/Family Regarding: Studies Performed, Diagnosis - Disposition Referrals: [facility] at [facility] [Outside] Disposition: HOME/ ROUTINE Disposition Time: 06:02 Condition: FAIR Instructions: Schizophrenia (DC) - Clinical Impression Clinical Impression: Homelessness - Scribe Statement The provider has reviewed the documentation as recorded by the Scriblisbeth Arizmendi All medical record entries made by the Franciscoiblisbeth were at my direction and personally dictated by me. I have reviewed the chart and agree that the record accurately reflects my personal performance of the history, physical exam, medical decision making, and the department course for this patient. I have also personally directed, reviewed, and agree with the discharge instructions and disposition.
== END 2018-11-02 06:05 | disposition left against medical advice (07) ==
LOC: C.ER 05:59
DX: Z02.89 Encounter for other administrative examinations (principal); F19.10 Other psychoactive substance abuse, uncomplicated

== ENCOUNTER 2018-11-03 03:48 | Emergency (ER) | payer OTHER ==
[2018-11-03 03:48] VITALS: BMI 26.6
--- NOTE | 2018-11-03 05:02 | C.PDOC ---
History Of Present Illness 63 year old female brought in via EMS after being found on the street. Patient has been seen here regularly over the past few nights. She states she [facility] the [facility]. Denies pain or injury. Chief Complaint (Nursing): Psychiatric Evaluation History Per: Patient History/Exam Limitations: no limitations Onset/Duration Of Symptoms: Hrs Current Symptoms Are (Timing): Still Present Suicide/Self Injury Attempted (Context): None Modifying Factor(s): Alcohol Associated Symptoms: denies: Depression, Suicidal Thoughts Involuntary Hold By: None Recent travel outside of the [place]: No Past Medical History Reviewed: Historical Data, Nursing Documentation, Vital Signs Vital Signs: Last Vital Signs Temp 98.3 F 11/03/18 03:56 Pulse 82 11/03/18 03:56 Resp 18 11/03/18 03:56 BP 128/72 11/03/18 03:56 Pulse Ox 100 11/03/18 03:56 - Medical History PMH: Anxiety, Back Problems, HTN, Schizophrenia Denies: Diabetes, Hepatitis, HIV, Chronic Kidney Disease, Seizures, Sexually Transmitted Disease - [facility] Procedures GROUP PSYCHOTHERAPY (04/28/17) INDIVID PSYCHOTHERAP NEC (05/25/13) INDIVIDUAL PSYCHOTHERAPY, SUPPORTIVE (03/21/17) MEDICATION MANAGEMENT (03/21/17) OTHER GROUP THERAPY (05/25/13) PSYCHIAT DRUG THERAP NEC (01/21/03) Family History: States: Unknown Family Hx - Social History Hx Alcohol Use: No Hx Substance Use: No - Immunization History Hx Tetanus Toxoid Vaccination: No Hx Influenza Vaccination: No Hx Pneumococcal Vaccination: No Review Of Systems Constitutional: Negative for: Fever, Chills Cardiovascular: Negative for: Chest Pain, Palpitations Respiratory: Negative for: Cough, Shortness of Breath Gastrointestinal: Negative for: Nausea, Vomiting Neurological: Negative for: Weakness, Numbness Physical Exam - Physical Exam Appears: Non-toxic, Unkempt Skin: Normal Color, Warm, Dry Head: Atraumatic, Normacephalic Eye(s): bilateral: Normal Inspection Oral Mucosa: Moist Neck: Normal, Supple Chest: Symmetrical, No Tenderness Cardiovascular: Rhythm Regular Respiratory: Normal Breath Sounds, No Rales, No Rhonchi, No Wheezing Gastrointestinal/Abdominal: Soft, No Tenderness Extremity: Normal ROM (x4) Neurological/Psych: Oriented x3, Normal Speech Gait: Steady ED Course And Treatment O2 Sat by Pulse Oximetry: 100 (room air) Pulse Ox Interpretation: Normal Progress Note: Urinalysis ordered. Disposition Counseled Patient/Family Regarding: Diagnosis - Disposition Referrals: at [facility] [Outside] Disposition: HOME/ ROUTINE Disposition Time: 06:00 Condition: STABLE Prescriptions: Ciprofloxacin [Cipro] 1 tab PO BID #[id number] tab Instructions: Urinary Tract Infections in Adults Forms: [facility] (Burundian) - POA Present On Arrival: None - Clinical Impression Clinical Impression: UTI (urinary tract infection), Homelessness - Scribe Statement The provider has reviewed the documentation as recorded by the Scribe Jamison Arizmendi All medical record entries made by the Scribe were at my direction and personall y dictated by me. I have reviewed the chart and agree that the record accurately reflects my personal performance of the history, physical exam, medical decision making, and the department course for this patient. I have also personally directed, reviewed, and agree with the discharge instructions and disposition.
[2018-11-03 05:16] LABS: SQUAMOUS EPITHIAL 2 /hpf (0-5); URINE BACTERIA RARE (<OCC); URINE BILIRUBIN NEGATIVE (NEGATIVE); URINE BLOOD 3+ (NEGATIVE); URINE CLARITY Hazy (Clear); URINE COLOR Yellow (YELLOW); URINE GLUCOSE (UA) NORMAL (Normal); URINE LEUKOCYTE ESTERASE 3+ Leu/uL (Negative); URINE PROTEIN 1+ mg/dL (NEGATIVE)
[2018-11-03 05:21] LABS: BARBITURATES, UR NEGATIVE (NEGATIVE); BENZODIAZEPINES, UR NEGATIVE (NEGATIVE); OPIATES, UR NEGATIVE (NEGATIVE); PHENCYCLIDINE, UR NEGATIVE (NEGATIVE)
[2018-11-03 06:06] VITALS: BP 106/75; PULSE 86; RESP 20; TEMP 98.1; O2SAT 98
== END 2018-11-03 06:10 | disposition home or self-care (01) ==
LOC: C.ER 03:48
DX: N39.0 Urinary tract infection, site not specified (principal); Z59.0 Homelessness; F20.9 Schizophrenia, unspecified; I10 Essential (primary) hypertension

== ENCOUNTER 2018-11-04 22:50 | Emergency (ER) | payer OTHER ==
[2018-11-04 22:52] VITALS: BMI 26.6
[2018-11-04 23:00] VITALS: RESP 18
--- NOTE | 2018-11-05 03:49 | C.PDOC ---
History Of Present Illness 63 y/o female presents to the ER arguing with staff and claiming that she needs a place to stay. Pt is a poor historian and has multiple ER visits for similar sx. Pt has no other complaints. Time Seen by Provider: 11/04/18 23:03 Chief Complaint (Nursing): Psychiatric Evaluation History Per: Patient History/Exam Limitations: no limitations Onset/Duration Of Symptoms: Hrs Current Symptoms Are (Timing): Still Present Past Medical History Reviewed: Historical Data, Nursing Documentation, Vital Signs Vital Signs: Last Vital Signs Temp Pulse 95 H 11/04/18 22:58 Resp 18 11/04/18 22:58 BP 122/77 11/04/18 22:58 Pulse Ox 100 11/04/18 22:58 - Medical History PMH: Anxiety, Back Problems, HTN, Schizophrenia - [facility] Procedures GROUP PSYCHOTHERAPY (04/28/17) INDIVID PSYCHOTHERAP NEC (05/25/13) INDIVIDUAL PSYCHOTHERAPY, SUPPORTIVE (03/21/17) MEDICATION MANAGEMENT (03/21/17) OTHER GROUP THERAPY (05/25/13) PSYCHIAT DRUG THERAP NEC (01/21/03) Family History: States: Unknown Family Hx - Social History Hx Alcohol Use: No Hx Substance Use: No - Immunization History Hx Tetanus Toxoid Vaccination: No Hx Influenza Vaccination: No Hx Pneumococcal Vaccination: No Review Of Systems Except As Marked, All Systems Reviewed And Found Negative. Constitutional: Positive for: Other (yelling,needing a place to stay ). Negative for: Fever, Chills Cardiovascular: Negative for: Chest Pain, Palpitations Respiratory: Negative for: Cough, Shortness of Breath Gastrointestinal: Negative for: Nausea, Vomiting Genitourinary: Negative for: Dysuria, Frequency Musculoskeletal: Negative for: Back Pain Neurological: Negative for: Weakness Physical Exam - Physical Exam Appears: Non-toxic, No Acute Distress, Agitated (yelling; arguing ), Other (questionable EtOH on breath ) Skin: Warm, Dry Head: Normacephalic Eye(s): bilateral: Normal Inspection, EOMI Chest: Symmetrical Cardiovascular: Rhythm Regular Respiratory: Normal Breath Sounds Gastrointestinal/Abdominal: Soft, No Tenderness Neurological/Psych: Oriented x3, Normal Speech ED Course And Treatment O2 Sat by Pulse Oximetry: 100 (RA) Pulse Ox Interpretation: Normal Medical Decision Making Medical Decision Making: Plans: -- chem labs -- blood work -- UA Disposition - Disposition Referrals: [facility] [Outside] [facility] [Outside] Disposition: HOME/ ROUTINE Disposition Time: 23:30 Condition: GOOD Additional Instructions: BIRD OROPEZA, thank you for letting us take care of you today. The emergency medical care you received today was directed at your acute symptoms. If you were prescribed any medication, please fill it and take as directed. It may take several days for your symptoms to resolve. Return to the Emergency Department if your symptoms worsen, do not improve, or if you have any other problems. Please contact your doctor or call one of the physicians/clinics you have been referred to that are listed on the Patient Visit Information form that is included in your discharge packet. Bring any paperwork you were given at discharge with you along with any medications you are taking to your follow up visit. Our treatment cannot replace ongoing medical care by a primary care provider outside of the emergency department. Thank you for allowing the [facility] team to be part of your care today. Follow up with your doctor or the clinic next week for further management. Instructions: Schizophrenia (DC) Forms: [employer] (Hungarian) - Clinical Impression Clinical Impression: Schizophrenia - Scribe Statement The provider has reviewed the documentation as recorded by the Scribe Galaviz Do Provider Attestation: All medical record entries made by the Scribe were at my direction and personally dictated by me. I have reviewed the chart and agree that the record accurately reflects my personal performance of the history, physical exam, medical decision making, and the department course for this patient. I have also personally directed, reviewed, and agree with the discharge instructions and disposition.
[2018-11-05 05:34] VITALS: BP 101/59; PULSE 77; TEMP 97.8
[2018-11-05 05:41] VITALS: O2SAT 100
== END 2018-11-05 05:46 | disposition home or self-care (01) ==
LOC: C.ER 22:50
DX: F20.9 Schizophrenia, unspecified (principal)

== ENCOUNTER 2018-11-08 00:43 | Emergency (ER) | payer OTHER ==
[2018-11-08 00:44] VITALS: BMI 26.6
--- NOTE | 2018-11-08 01:03 | C.PDOC ---
History Of Present Illness 63 year old female is brought to the ED by EMS after being found wondering the streets. Patient offers no medical complaints at this time. Patient denies SI/HI, hallucinations, CP, SOB, injury, fall, trauma. Time Seen by Provider: 11/08/18 01:01 History Per: Patient, EMS History/Exam Limitations: no limitations Onset/Duration Of Symptoms: Hrs Current Symptoms Are (Timing): Still Present Suicide/Self Injury Attempted (Context): None Associated Symptoms: denies: Depression, Suicidal Thoughts, Suicidal Plan Recent travel outside of the [place]: No Additional History Per: Patient, EMS Past Medical History Reviewed: Historical Data, Nursing Documentation, Vital Signs - Medical History PMH: Anxiety, Back Problems, HTN, Schizophrenia Denies: HIV, Chronic Kidney Disease, Seizures, Sexually Transmitted Disease Surgical History: No Surg Hx - [facility] Procedures GROUP PSYCHOTHERAPY (04/28/17) INDIVID PSYCHOTHERAP NEC (05/25/13) INDIVIDUAL PSYCHOTHERAPY, SUPPORTIVE (03/21/17) MEDICATION MANAGEMENT (03/21/17) OTHER GROUP THERAPY (05/25/13) PSYCHIAT DRUG THERAP NEC (01/21/03) Family History: States: Unknown Family Hx - Social History Hx Alcohol Use: No Hx Substance Use: No - Immunization History Hx Tetanus Toxoid Vaccination: No Hx Influenza Vaccination: No Hx Pneumococcal Vaccination: No Review Of Systems Constitutional: Negative for: Fever, Chills Cardiovascular: Negative for: Chest Pain Respiratory: Negative for: Cough, Shortness of Breath Gastrointestinal: Negative for: Nausea, Vomiting, Abdominal Pain Skin: Negative for: Rash Neurological: Negative for: Weakness, Numbness Psych: Negative for: Depression, Suicidal ideation Physical Exam - Physical Exam Appears: Non-toxic, No Acute Distress, Unkempt, Other (foul smelling, poor hygiene) Skin: Warm, Dry Head: Normacephalic Eye(s): bilateral: Normal Inspection Neck: Supple Chest: Symmetrical Cardiovascular: Rhythm Regular Respiratory: No Rales, No Rhonchi, No Wheezing Gastrointestinal/Abdominal: Soft, No Tenderness, No Guarding, No Rebound Extremity: Bilateral: Atraumatic, Normal Color And Temperature, Normal ROM Neurological/Psych: Oriented x3, Normal Speech, Normal Cognition Gait: Steady ED Course And Treatment O2 Sat by Pulse Oximetry: 98 (ON RA) Pulse Ox Interpretation: Normal Reevaluation Time: 05:29 Reassessment Condition: Improved Disposition Counseled Patient/Family Regarding: Studies Performed, Diagnosis, Need For Followup - Disposition Referrals: [facility] [Outside] Disposition: HOME/ ROUTINE Disposition Time: 01:03 Condition: FAIR Forms: General Discharge Instructions - Clinical Impression Clinical Impression: Medical assessment - Scribe Statement The provider has reviewed the documentation as recorded by the Scribe Mayito Posada All medical record entries made by the Scribe were at my direction and personally dictated by me. I have reviewed the chart and agree that the record accurately reflects my personal performance of the history, physical exam, medical decision making, and the department course for this patient. I have also personally directed, reviewed, and agree with the discharge instructions and disposition.
[2018-11-08 05:44] VITALS: BP 104/65; PULSE 72; RESP 20; TEMP 98; O2SAT 99
== END 2018-11-08 05:45 | disposition home or self-care (01) ==
LOC: C.ER 00:43
DX: Z00.00 Encounter for general adult medical examination without abnormal findings (principal); I10 Essential (primary) hypertension; F20.9 Schizophrenia, unspecified

== ENCOUNTER 2018-11-09 05:23 | Emergency (ER) | payer OTHER ==
[2018-11-09 05:24] VITALS: BMI 26.6
[2018-11-09 05:30] VITALS: RESP 16; O2SAT 99
--- NOTE | 2018-11-09 06:02 | C.PDOC ---
History Of Present Illness The patient is brought to the ED by EMS for evaluation after she was found loitering at [facility] prior to arrival. Patient denies any complaints at this time. Time Seen by Provider: 11/09/18 06:02 Chief Complaint (Nursing): Medical Clearance History Per: Patient, EMS History/Exam Limitations: no limitations Onset/Duration Of Symptoms: Hrs Current Symptoms Are (Timing): Gone Severity: None Pain Scale Rating Of: 0 Additional History Per: Patient, EMS Past Medical History Reviewed: Historical Data, Nursing Documentation, Vital Signs Vital Signs: Last Vital Signs Temp 98.1 F 11/09/18 05:29 Pulse 97 H 11/09/18 05:29 Resp 16 11/09/18 05:29 BP 102/65 11/09/18 05:29 Pulse Ox 99 11/09/18 05:29 - Medical History PMH: Anxiety, Back Problems, HTN, Schizophrenia Denies: HIV, Chronic Kidney Disease, Seizures, Sexually Transmitted Disease Surgical History: No Surg Hx - [facility] Procedures GROUP PSYCHOTHERAPY (04/28/17) INDIVID PSYCHOTHERAP NEC (05/25/13) INDIVIDUAL PSYCHOTHERAPY, SUPPORTIVE (03/21/17) MEDICATION MANAGEMENT (03/21/17) OTHER GROUP THERAPY (05/25/13) PSYCHIAT DRUG THERAP NEC (01/21/03) Family History: States: Unknown Family Hx - Social History Hx Alcohol Use: No Hx Substance Use: No - Immunization History Hx Tetanus Toxoid Vaccination: No Hx Influenza Vaccination: No Hx Pneumococcal Vaccination: No Review Of Systems Constitutional: Negative for: Fever, Chills Cardiovascular: Negative for: Chest Pain, Palpitations Respiratory: Negative for: Cough, Shortness of Breath Gastrointestinal: Negative for: Nausea, Vomiting, Abdominal Pain Skin: Negative for: Rash, Lesions, Jaundice, Bruising Neurological: Negative for: Weakness, Numbness Psych: Positive for: Other (medical clearance ). Negative for: Suicidal ideation Physical Exam - Physical Exam Appears: Non-toxic, No Acute Distress Skin: Warm, Dry Head: Normacephalic Chest: Symmetrical, No Deformity Cardiovascular: Rhythm Regular Respiratory: No Accessory Muscle Use Extremity: Normal ROM Neurological/Psych: Oriented x3 ED Course And Treatment O2 Sat by Pulse Oximetry: 99 Disposition Counseled Patient/Family Regarding: Studies Performed, Diagnosis, Need For Followup - Disposition Referrals: [facility] [Outside] Disposition: HOME/ ROUTINE Disposition Time: 06:02 Condition: FAIR Forms: [facility] (Welsh), General Discharge Instructions - Clinical Impression Clinical Impression: Encounter for medical assessment - Scribe Statement The provider has reviewed the documentation as recorded by the Scribe (Katarzyna Helton) Provider Attestation: All medical record entries made by the Scribe were at my direction and personally dictated by me. I have reviewed the chart and agree that the record accurately reflects my personal performance of the history, physical exam, medical decision making, and the department course for this patient. I have also personally directed, reviewed, and agree with the discharge instructions and disposition.
[2018-11-09 06:55] VITALS: BP 110/68; PULSE 88; TEMP 98.5
== END 2018-11-09 06:58 | disposition home or self-care (01) ==
LOC: C.ER 05:23
DX: Z00.00 Encounter for general adult medical examination without abnormal findings (principal); I10 Essential (primary) hypertension; F20.9 Schizophrenia, unspecified